=== PATIENT | male | born 1960 | race Caucasian/White ===

== ENCOUNTER 2025-01-15 09:13 | Emergency (ER) | payer MEDICARE, OTHER ==
[~2025-01-15] VITALS: Ht 177.8 cm; Wt 75.8 kg
--- NOTE | 2025-01-15 09:25 | Physician Documentation ---
History of Present Illness ~ Chief Complaint: Urinary Retention Stated Complaint: CANT VOID Time Seen by MD: 09:25 HPI This 64 yr old male presents to ER due to inability to urinate for over 12 hrs. Notes recent PCP visit with normal PSA. Denies chills, fever, or recent issues with retention or dysuria. Hx of urinary retention years ago at which point he had a cervical "spinal mass". 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 Sees [facility] neuro and has appt in a week for f/u. Denies other concerns. Admits to drinking "lots of Coors Lite" yesterday but denies anything else different over the last couple days. Does report that he frequently mountain bikes and did take a long ride yesterday. No reported injury. 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 Physical Exam Vital Signs: Temperature: 97.7, Source: Temporal, Heart Rate: 80, Respiratory Rate: 15, BP: 140/74, Pulse Oximetry: 98, Weight: 75.800 Physical Exam General: Alert, appears uncomfortable with preference to stand/walk rather than lie down. Neck: Full range of motion. Respiratory: Lungs clear, no respiratory distress. Chest: No accessory muscle use. Cardiovascular: Regular rate and rhythm, no murmurs. Gastrointestinal: Soft, nontender, nondistended. Bowels sounds present. Extremities: Normal range of motion, no deformity. Neurologic: Oriented x4. Psychiatric: Normal mood and affect. Skin: Normal color, warm and dry. No edema, no ecchymosis. Progress Progress Note RN reports over 800 PVR with bladder scan. Fuentes placed. Discussed case with RAVINDER Pak who recommends CT with/without contrast of lumbar spine and consideration for MRI as well. 1109: Case again discussed with RAVINDER Pak who recommends MRI w and without contrast of cervical, thoracic, and lumbar spine. Results/Orders Reviewed/noted all lab results: Yes Results/Orders Vital Signs 01/15/25 01/15/25 01/15/25 01/15/25 09:20 10:46 10:51 11:30 Temp 97.7 Pulse 80 70 68 Resp 15 16 18 14 B/P (MAP) 140/74 98/55 (69) 111/64 (80) Pulse Ox 98 95 97 O2 Flow Rate 0 0 01/15/25 01/15/25 01/15/25 01/15/25 12:30 13:25 14:30 15:30 Temp 97.9 Pulse 69 65 64 64 Resp 16 10 16 16 B/P (MAP) 109/64 (79) 112/62 (79) 111/64 (80) 114/64 (81) Pulse Ox 93 95 95 95 O2 Flow Rate 0 0 01/15/25 01/15/25 01/16/25 01/16/25 16:30 20:56 01:22 03:56 Temp 98.0 98.0 98.0 Pulse 70 63 58 55 Resp 16 12 12 12 B/P (MAP) 108/66 (80) 126/74 (91) 101/54 (70) 103/60 (74) Pulse Ox 96 95 95 97 O2 Flow Rate 0 0 0 0 01/16/25 05:50 Temp 98.0 Pulse 53 Resp 12 B/P (MAP) 116/58 (77) Pulse Ox 94 O2 Flow Rate 0 Laboratory Tests Test 01/15/25 10:05 01/15/25 10:39 White Blood Count 7.7 Red Blood Count 5.31 Hemoglobin 14.0 Hematocrit 42.5 Mean Corpuscular Volume 80.1 Mean Corpuscular Hemoglobin 26.4 L Mean Corpuscular Hemoglobin Concent 32.9 L Red Cell Distribution Width 15.0 H Platelet Count 202 Mean Platelet Volume 8.0 Neutrophils (%) (Auto) 75.8 H Lymphocytes (%) (Auto) 16.4 L Monocytes (%) (Auto) 7.0 Eosinophils (%) (Auto) 0.1 Basophils (%) (Auto) 0.7 Neutrophils # (Auto) 5.8 Lymphocytes # (Auto) 1.3 Monocytes # (Auto) 0.5 Eosinophils # (Auto) 0.0 Basophils # (Auto) 0.1 CBC Comment Sodium Level 135 Potassium Level 4.0 Chloride Level 102 Carbon Dioxide Level 21.1 L Anion Gap 12 Blood Urea Nitrogen 21 H Creatinine 1.13 H Estimated GFR/1.73 m2 65 BUN/Creatinine Ratio 18.6 Glucose Level 96 Calcium Level 8.8 Total Bilirubin 0.6 Aspartate Amino Transf (AST/SGOT) 21 Alanine Aminotransferase (ALT/SGPT) 29 Alkaline Phosphatase 76 Total Protein 7.1 Albumin 3.8 Globulin 3.3 Albumin/Globulin Ratio 1.2 Chemistry Comments Urine Specimen Description Fuentes cath Urine Color Yellow Urine Clarity Clear Urine pH 5.5 Urine Specific [place] 1.010 Urine Protein Negative Urine Glucose (UA) Negative Urine Ketones Negative Urine Occult Blood Moderate H Urine Nitrite Negative Urine Bilirubin Negative Urine Urobilinogen 0.2 Urine Leukocyte Esterase Negative Urine RBC 3-10 Urine WBC 0-4 Urine Squamous Epithelial Cells Few Urine Bacteria Few Urine Mucus None seen Urine Culture Indicated Not ind Volume Urine Centrifuged 4 ml Urine Comment Low volume EKG/XRAY/CT/US/VASC/MRI CT : Impression [place] [id number] CAT SCAN Patient: HOMAR SELLERS Medical Record: [id number] [facility] : 1960, Age: 64 Sex: Male Location: ER Patient Status: REG ER Service Date/Time: 01/15/25955 Ordering Physician: LINDA PALUMBO NP Exam: CT LUMBAR SPINE EXAM: CT CT LUMBAR SPINE INDICATION: urinary retention please do with and without contrast COMPARISON: None TECHNIQUE: Multiple axial CT images of the lumbar spine were obtained using bone algorithm. Axial and coronal reformatting was done. Bone and soft tissue windows were reviewed. Radiation Dose Information: CT Dose: CTDI volume is 18 mGy. Dose-length product is 621 mGy*cm FINDINGS: Lumbar vertebrae are normal in height and alignment. No disc space narrowing On transaxial images at L3-4 there is slight to moderate narrowing of the central canal and neural foramina by diffusely bulging disc ligamentum flavum hypertrophy and facet joint hypertrophy At L4-5 2 mm anterolisthesis due to degenerative facet joint disease. Moderate narrowing of the central canal and neural foramina by combination of bulging disc ligamentum flavum hypertrophy and facet joint hypertrophy At L5-S1 degenerative facet joint disease IMPRESSION: 1. At L3-4 moderate narrowing of the central canal and neural foramina by bulging disc ligamentum flavum hypertrophy and facet joint hypertrophy 2. At L4-5 2 mm anterolisthesis due to degenerative facet joint disease. Moderate narrowing of the central canal and neural foramina by a combination of bulging disc ligamentum flavum hypertrophy and facet joint hypertrophy. There may be nerve root effacement at this level. 3. Radiation optimization: All CT scans at this facility use at least one of these dose optimization techniques: automated exposure control mA and/or kV adjustment per patient size (includes targeted exams where dose is matched to clinical indication) or iterative reconstruction. Electronically Signed by:KAIN WYNN MD Date & Time: 01/15/251028 Dictated by: KAIN WYNN MD Dictation date and time: 01/15/25 102 Primary Care Provider: NO PRIMARY CARE PROVIDER cc: LINDA PALUMBO OPHTHALMIC TECH ~ MRI : Impression [place] [id number] MRI Patient: HOMAR SELLERS Medical Record: [id number] : 1960, Age: 64 Sex: Male Location: ER Patient Status: REG ER Service Date/Time: 01/15/251929 Ordering Physician: LINDA PALUMBO NP Exam: MRI C SPINE PROCEDURE: MRI cervical spine without and with contrast. INDICATION: hx sarcoid masses COMPARISON: None TECHNIQUE: MRI of the cervical spine without and with 15 mL Clariscan intravenous contrast utilizing multiplanar, multisequence technique. FINDINGS: The alignment of the cervical spine vertebral bodies is preserved. The vertebral body heights are maintained. There is intervertebral disc space narrowing at C3- C4, C4-C5 and C5-C6. The bone marrow signal is homogenous and unremarkable. The cervical spinal cord is normal in signal characteristics and caliber. Posterior fossa structures are unremarkable. No cerebellar tonsillar herniation. Paraspinal muscles are unremarkable. At the C2-C3 level, there is no evidence of central spinal canal or neuroforaminal stenosis. At the C3-C4 level, there is posterior disc osteophyte complex. No significant spinal stenosis. Moderate bilateral neural foraminal stenosis. At the C4-C5 level, there is posterior disc osteophyte complex without significant canal stenosis. Severe right and moderate to severe left neural foraminal stenosis. At the C5-C6 level, there is posterior disc osteophyte complex without significant canal stenosis. Severe right and mild left neural foraminal stenosis. At the C6-C7 level, there is posterior disc osteophyte complex which is asymmetric to the left. No significant spinal stenosis. Severe left neural foraminal stenosis. Right neural foramina is patent. At the C7-T1 level, there is no evidence of central spinal canal or neuroforaminal stenosis. Other: None. No leptomeningeal or dural enhancement. No mass. IMPRESSION: 1. No evidence of pathologic enhancement or mass to suggest neurosarcoid. 2. Multilevel cervical spondylosis as described. Electronically Signed by:ANTELMO DIETRICH MD Date & Time: 01/16/25627 Dictated by: ANTELOM DIETRICH MD Dictation date and time: 01/16/25627 Primary Care Provider: NO PRIMARY CARE PROVIDER cc: LINDA PALUMBO OPHTHALMIC TECH ~ [address] [address] MRI Patient: HOMAR SELLERS Medical Record: [id number] [facility] : 1960, Age: 64 Sex: Male Location: ER Patient Status: REG ER Service Date/Time: 01/15/251929 Ordering Physician: LINDA PALUMBO NP Exam: MRI THORACIC SPINE PROCEDURE: MRI thoracic spine without contrast. INDICATION: hx urinary retention, masses on cervical spine COMPARISON: None TECHNIQUE: MRI thoracic spine without intravenous contrast utilizing multiplanar, multisequence technique. FINDINGS: Study degraded by motion but images are still of diagnostic value. The marrow signal is homogenous. The vertebral body heights are maintained. Alignment of the thoracic spine is preserved. Broad-based posterior disc bulge at T3-T4 contacting but not deforming the thoracic spinal cord. The intervertebral disc spaces and signal characteristics are maintained. No significant canal or neural foraminal stenosis in the thoracic spine. The thoracic spinal cord is normal in caliber and signal characteristics. Other: None. Impression: 1. Broad-based posterior disc bulge at T3-T4 which contacts but does not deform the ventral surface of the cervical spinal cord. 2. No significant spinal or neural foraminal stenosis in the thoracic spine. Electronically Signed by:ANTELMO DIETRICH MD Date & Time: 01/16/25613 Dictated by: ANTELMO DIETRICH MD Dictation date and time: 01/16/25613 Primary Care Provider: NO PRIMARY CARE PROVIDER cc: LINDA PALUMBO OPHTHALMIC TECH ~ [address] [address] MRI Patient: HOMAR SELLERS Medical Record: [id number] [facility] : 1960, Age: 64 Sex: Male Location: ER Patient Status: REG ER Service Date/Time: 01/15/251929 Ordering Physician: LINDA PALUMBO NP Exam: MRI LUMBAR SPINE Addendum: 1 ADDENDUM # 1 Correction to the procedure and technique: Procedure: MRI lumbar spine without and with intravenous contrast. Technique: MRI lumbar spine without and with intravenous contrast utilizing multiplanar, multi sequence technique. ORIGINAL REPORT PROCEDURE: MRI lumbar spine without contrast. INDICATION: with and without for urinary retention, hx mass COMPARISON: CT CT LUMBAR SPINE on DOS: 01/15/25 TECHNIQUE: MRI lumbar spine without intravenous contrast utilizing multiplanar, multisequence technique. FINDINGS: Evaluation is limited by motion artifact. There is grade 1 anterolisthesis at L4-L5. The lumbar curvature is maintained. Bone marrow signal is homogenous and unremarkable. The vertebral body heights are maintained. There is intervertebral disc space narrowing and diminished T2 signal intensity at L4-L5. Intervertebral disc heights are otherwise maintained. There is a Schmorl's node in the superior and inferior L1 L plate.. The conus medullaris is normal in signal characteristics and terminates at the T12-L1 level. Paraspinal muscles are unremarkable. At the T12-L1 level, there is no evidence of central spinal canal or neuroforaminal stenosis. Small posterior central annular fissure. At the L1-L2 level, there is small posterior central annular fissure. No evidence of significant spinal or neural foraminal stenosis. At the L2-L3 level, there is no evidence of central spinal canal stenosis. Mild bilateral neural foraminal stenosis. At the L3-L4 level, there is broad-based posterior disc bulge, ligamentum flavum thickening and facet hypertrophy. There is a small posterior central disc protrusion. There is moderate to severe right neural foraminal stenosis with impingement of the exiting right L3 nerve root. There is moderate to severe left neural foraminal stenosis without nerve root impingement. At the L4-L5 level, there is grade 1 anterolisthesis, broad-based posterior disc bulge, ligamentum flavum and facet hypertrophy. There is a 4 mm low signal intensity focus either arising from the right facet joints representing ossification, or calcification of the ligamentum flavum which contacts and impinges the exiting right L4 nerve root in the neural foramen. There is severe right neural foraminal stenosis. There is mild left neural foraminal stenosis. At the L5-S1 level, there is broad-based posterior disc bulge, ligamentum flavum thickening and facet hypertrophy. There is mild bilateral neural foraminal sten osis. Other: None. Postcontrast images: No pathologic enhancement or mass. IMPRESSION: 1. Multilevel lumbar spondylosis. This includes moderate to severe right neural foraminal stenosis at L3-L4 secondary to either osteophyte arising from the right facet joint or calcification of the hypertrophied ligamentum flavum which causes impingement of the exiting right L3 nerve root. There is also severe right neural foraminal stenosis and impingement of the exiting right L4 nerve root as described. 2. No pathologic enhancement in the lumbar spine. No mass. Dictated: ANTELMO DIETRICH MD Dictated Date: 01/16/25 Ditated Time: 06 Electronically signed by: ANTELMO DIETRICH MD 01/16/25 0608 PROCEDURE: MRI lumbar spine without contrast. INDICATION: with and without for urinary retention, hx mass COMPARISON: CT CT LUMBAR SPINE on DOS: 01/15/25 TECHNIQUE: MRI lumbar spine without intravenous contrast utilizing multiplanar, multisequence technique. FINDINGS: Evaluation is limited by motion artifact. There is grade 1 anterolisthesis at L4-L5. The lumbar curvature is maintained. Bone marrow signal is homogenous and unremarkable. The vertebral body heights are maintained. There is intervertebral disc space narrowing and diminished T2 signal intensity at L4-L5. Intervertebral disc heights are otherwise maintained. There is a Schmorl's node in the superior and inferior L1 L plate.. The conus medullaris is normal in signal characteristics and terminates at the T12-L1 level. Paraspinal muscles are unremarkable. At the T12-L1 level, there is no evidence of central spinal canal or neuroforaminal stenosis. Small posterior central annular fissure. At the L1-L2 level, there is small posterior central annular fissure. No evidence of significant spinal or neural foraminal stenosis. At the L2-L3 level, there is no evidence of central spinal canal stenosis. Mild bilateral neural foraminal stenosis. At the L3-L4 level, there is broad-based posterior disc bulge, ligamentum flavum thickening and facet hypertrophy. There is a small posterior central disc protrusion. There is moderate to severe right neural foraminal stenosis with impingement of the exiting right L3 nerve root. There is moderate to severe left neural foraminal stenosis without nerve root impingement. At the L4-L5 level, there is grade 1 anterolisthesis, broad-based posterior disc bulge, ligamentum flavum and facet hypertrophy. There is a 4 mm low signal in tensity focus either arising from the right facet joints representing ossification, or calcification of the ligamentum flavum which contacts and impinges the exiting right L4 nerve root in the neural foramen. There is severe right neural foraminal stenosis. There is mild left neural foraminal stenosis. At the L5-S1 level, there is broad-based posterior disc bulge, ligamentum flavum thickening and facet hypertrophy. There is mild bilateral neural foraminal stenosis. Other: None. Postcontrast images: No pathologic enhancement or mass. IMPRESSION: 1. Multilevel lumbar spondylosis. This includes moderate to severe right neural foraminal stenosis at L3-L4 secondary to either osteophyte arising from the right facet joint or calcification of the hypertrophied ligamentum flavum which causes impingement of the exiting right L3 nerve root. There is also severe right neural foraminal stenosis and impingement of the exiting right L4 nerve root as described. 2. No pathologic enhancement in the lumbar spine. No mass. Electronically Signed by:ANTELMO DIETRICH MD Date & Time: 01/16/25555 Dictated by: ANTELMO DIETRICH MD Dictation date and time: 01/16/25555 Primary Care Provider: NO PRIMARY CARE PROVIDER cc: LINDA PALUMBO OPHTHALMIC TECH ~ Departure Disposition: 01 HOME / SELF CARE / HOMELESS Impression: Primary Impression: Urinary retention Condition: Improved Additional Instructions: There is no explanation for your acute urinary retention. A Fuentes catheter was placed. There is no evidence of urinary tract infection. Please follow-up with urology. Your MRI did not show any evidence of severe cord impingement, there are some chronic narrowings that likely result in chronic back pain. Follow-up with the spine or neurosurgeon of your choice. Referrals: NO PRIMARY CARE PROVIDER (PCP) Education Educated: Patient, Family Educated regarding: diagnosis, treatment, prognosis, need for follow up Additional Comment Additional Comment Patient was signed out to me to evaluate urinary retention and pitting on MRI to transfer to neurosurgical center for neurogenic bladder or discharge home if it was thought to be secondary to BPH. There was a delay in results of the MRI. Patient will be signed out to the morning physician for final disposition. Additional Comment Additional Comment Additional note by Tuan Pak DO: I took over the care of this patient from previous physician. I reviewed any previous notes available, obtain my own history, review of systems and physical examination was performed by myself. This is a 64-year-old gentleman who presented for evaluation of acute urinary retention. Had over 800 cc of postvoid residual. 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 He had undergone MRI. There was a severe delay in the MRI reads. MRI read showed no acute disease no severe cord impingement. He remains neurologically intact. Fuentes catheter is in place and draining. He is stable for discharge with outpatient follow-up with his neurosurgeon and neurologist. Patient is hemodynamically stable for discharge home with follow with their primary care provider. [ ] Specific and cautious return precautions provided and discussed with full understanding. Any incidental findings were also discussed and follow up recommendations given. [] All questions answered. Patient/family were able to verbalize back return precautions. Patient/family agree to plan. Copies of imaging and laboratory studies were provided. Signature Scribe Signature: no scribe Attestation: The note accurately reflects work and decisions made by me.Linda Larsen NP 01/15/25 09:35 This note accurately reflects clinical decisions, work performed by myself, Tuan Pak DO @ 0821 on 01/16/2025 LINDA PALUMBO NP Jan 15, 2025 09:25 BRIDGETTE KWON MD Jan 15, 2025 19:56 TUAN PAK DO Jan 16, 2025 08:14
[2025-01-15] MEDS: LidoCAINE 2% Topical Jelly 11mL syringe (UROJET) TOP ONE (09:54)
[2025-01-15] MEDS: LORazepam 1 MG tablet PO ONE (10:04)
[2025-01-15 10:10] LABS: BASOPHILS # (AUTO) 0.1 X10'3 (0-0.2); BASOPHILS % (AUTO) 0.7 % (0-1); EOSINOPHILS % (AUTO) 0.1 % (0-6); HEMATOCRIT 42.5 % (42.0-52.0); LYMPHOCYTES # (AUTO) 1.3 X10'3 (1.1-4.8); LYMPHOCYTES % (AUTO) 16.4 % (21-51); MEAN CORPUSCULAR HEMOGLOBIN 26.4 PG (27.0-31.0); MEAN CORPUSCULAR HGB CONC 32.9 g/dL (33.0-36.5); MEAN CORPUSCULAR VOLUME 80.1 FL (78-98); MONOCYTES # (AUTO) 0.5 X10'3 (0-0.9); NEUTROPHILS # (AUTO) 5.8 X10'3 (1.8-7.7); NEUTROPHILS % (AUTO) 75.8 % (42-75); PLATELET COUNT 202 X10'3 (140-440); RED BLOOD COUNT 5.31 X10'6 (4.70-6.10); WHITE BLOOD COUNT 7.7 X10'3 (4.5-11.0)
[2025-01-15 10:26] LABS: ALANINE AMINOTRANSFERASE 29 U/L (12-78); ALBUMIN 3.8 G/DL (3.4-5.0); ALBUMIN/GLOBULIN RATIO 1.2 (1.1-1.5); ALKALINE PHOSPHATASE 76 IU/L (46-116); ANION GAP 12 (8-16); ASPARTATE AMINO TRANSFERASE 21 U/L (10-37); BILIRUBIN,TOTAL 0.6 MG/DL (0.1-1.0); BLOOD UREA NITROGEN 21 MG/DL (7-18); BUN/CREATININE RATIO 18.6 (10.0-20.0); CALCIUM 8.8 MG/DL (8.5-10.1); CHLORIDE 102 MMOL/L (99-107); CREATININE 1.13 MG/DL (0.60-1.10); GLUCOSE 96 MG/DL (70-104); SODIUM 135 MMOL/L (135-145); TOTAL CARBON DIOXIDE 21.1 MMOL/L (24-32); TOTAL PROTEIN 7.1 G/DL (6.4-8.2); eCRCL 67 ML/MIN; eGFR 65 ML/MIN
--- NOTE | 2025-01-15 10:31 | RADIOLOGY REPORT ---
EXAM: CT CT LUMBAR SPINE INDICATION: urinary retention please do with and without contrast COMPARISON: None TECHNIQUE: Multiple axial CT images of the lumbar spine were obtained using bone algorithm. Axial an d coronal reformatting was done. Bone and soft tissue windows were reviewed. Radiation Dose Information: CT Dose: CTDI volume is 18 mGy. Dose-length product is 621 mGy*cm FINDINGS: Lumbar vertebrae are normal in height and alignment. No disc space narrowing On transaxial images at L3-4 there is slight to moderate narrowing of the central canal and neural fo ramina by diffusely bulging disc ligamentum flavum hypertrophy and facet joint hypertrophy At L4-5 2 mm anterolisthesis due to degenerative facet joint disease. Moderate narrowing of the cent ral canal and neural foramina by combination of bulging disc ligamentum flavum hypertrophy and facet joint hypertrophy At L5-S1 degenerative facet joint disease IMPRESSION: 1. At L3-4 moderate narrowing of the central canal and neural foramina by bulging disc ligamentum fla vum hypertrophy and facet joint hypertrophy 2. At L4-5 2 mm anterolisthesis due to degenerative facet joint disease. Moderate narrowing of the c entral canal and neural foramina by a combination of bulging disc ligamentum flavum hypertrophy and f acet joint hypertrophy. There may be nerve root effacement at this level. 3. Radiation optimization: All CT scans at this facility use at least one of these dose optimization techniques: automated exposure control mA and/or kV adjustment per patient size (includes targeted e xams where dose is matched to clinical indication) or iterative reconstruction.
[2025-01-15 11:00] LABS: BILIRUBIN,URINE NEGATIVE (Neg); CLARITY,URINE CLEAR (Clear); COLOR,URINE YELLOW (Yellow); GLUCOSE, URINE NEGATIVE (Neg); KETONES,URINE NEGATIVE (Neg); LEUKOCYTE ESTERASE ,URINE NEGATIVE (Neg); NITRITES, URINE NEGATIVE (Neg); OCCULT BLOOD,URINE MODERATE (Neg); PH,URINE 5.5 (4.8-8.0); PROTEIN,URINE NEGATIVE (Neg); UROBILINOGEN,URINE 0.2 E.U/dL (0.2-1.0)
[2025-01-15 11:03] LABS: UA COLLECTION TYPE FOLEY CATH
[2025-01-15 11:11] LABS: WBC,URINE 0-4 /HPF (0-4)
[2025-01-15 11:12] LABS: BACTERIA,URINE FEW /HPF (Neg); MUCUS STRANDS NONE SEEN /LPF (Neg); SQUAMOUS EPITHELIAL CELL,UR FEW /LPF (FEW)
[2025-01-15] MEDS: LORazepam 2 mg/ml vial IV ONE (18:14)
[2025-01-15] MEDS: GADOTERATE MEGLUMINE 7.5 MMOL/15 ML VIAL IV ONE (20:09)
[2025-01-15] MEDS ORDERED: VENL25TA48 PO (21:29)
[2025-01-15] MEDS ORDERED: ACET-3414 (21:29)
[2025-01-15] MEDS ORDERED: LYR25C PO (21:29)
[2025-01-15] MEDS ORDERED: DOXY-1 PO (21:29)
--- NOTE | 2025-01-16 05:59 | RADIOLOGY REPORT ---
PROCEDURE: MRI lumbar spine without contrast. INDICATION: with and without for urinary retention, hx mass COMPARISON: CT CT LUMBAR SPINE on DOS: 01/15/25 TECHNIQUE: MRI lumbar spine without intravenous contrast utilizing multiplanar, multisequence techni que. FINDINGS: Evaluation is limited by motion artifact. There is grade 1 anterolisthesis at L4-L5. The lumbar curvature is maintained. Bone marrow signal is homogenous and unremarkable. The vertebral body heights are maintained. There is intervertebral disc space narrowing and diminished T2 signal intensity at L4-L5. Intervertebral disc heights are otherw ise maintained. There is a Schmorl's node in the superior and inferior L1 L plate.. The conus medulla ris is normal in signal characteristics and terminates at the T12-L1 level. Paraspinal muscles are un remarkable. At the T12-L1 level, there is no evidence of central spinal canal or neuroforaminal stenosis. Small p osterior central annular fissure. At the L1-L2 level, there is small posterior central annular fissure. No evidence of significant spi nal or neural foraminal stenosis. At the L2-L3 level, there is no evidence of central spinal canal stenosis. Mild bilateral neural for aminal stenosis. At the L3-L4 level, there is broad-based posterior disc bulge, ligamentum flavum thickening and facet hypertrophy. There is a small posterior central disc protrusion. There is moderate to severe right n eural foraminal stenosis with impingement of the exiting right L3 nerve root. There is moderate to se kendy left neural foraminal stenosis without nerve root impingement. At the L4-L5 level, there is grade 1 anterolisthesis, broad-based posterior disc bulge, ligamentum fl avum and facet hypertrophy. There is a 4 mm low signal intensity focus either arising from the right facet joints representing ossification, or calcification of the ligamentum flavum which contacts and impinges the exiting right L4 nerve root in the neural foramen. There is severe right neural foramin al stenosis. There is mild left neural foraminal stenosis. At the L5-S1 level, there is broad-based posterior disc bulge, ligamentum flavum thickening and facet hypertrophy. There is mild bilateral neural foraminal stenosis. Other: None. Postcontrast images: No pathologic enhancement or mass. IMPRESSION: 1. Multilevel lumbar spondylosis. This includes moderate to severe right neural foraminal stenosis a t L3-L4 secondary to either osteophyte arising from the right facet joint or calcification of the hyp ertrophied ligamentum flavum which causes impingement of the exiting right L3 nerve root. There is al so severe right neural foraminal stenosis and impingement of the exiting right L4 nerve root as descr ibed. 2. No pathologic enhancement in the lumbar spine. No mass.
--- NOTE | 2025-01-16 06:16 | RADIOLOGY REPORT ---
PROCEDURE: MRI thoracic spine without contrast. INDICATION: hx urinary retention, masses on cervical spine COMPARISON: None TECHNIQUE: MRI thoracic spine without intravenous contrast utilizing multiplanar, multisequence tech nique. FINDINGS: Study degraded by motion but images are still of diagnostic value. The marrow signal is homogenous. The vertebral body heights are maintained. Alignment of the thoracic spine is preserved. Broad-based posterior disc bulge at T3-T4 contacting but not deforming the thora cic spinal cord. The intervertebral disc spaces and signal characteristics are maintained. No signif icant canal or neural foraminal stenosis in the thoracic spine. The thoracic spinal cord is normal i n caliber and signal characteristics. Other: None. Impression: 1. Broad-based posterior disc bulge at T3-T4 which contacts but does not deform the ventral surface o f the cervical spinal cord. 2. No significant spinal or neural foraminal stenosis in the thoracic spine.
--- NOTE | 2025-01-16 06:30 | RADIOLOGY REPORT ---
PROCEDURE: MRI cervical spine without and with contrast. INDICATION: hx sarcoid masses COMPARISON: None TECHNIQUE: MRI of the cervical spine without and with 15 mL Clariscan intravenous contrast utilizing multiplanar, multisequence technique. FINDINGS: The alignment of the cervical spine vertebral bodies is preserved. The vertebral body heights are annette ntained. There is intervertebral disc space narrowing at C3-C4, C4-C5 and C5-C6. The bone marrow sign al is homogenous and unremarkable. The cervical spinal cord is normal in signal characteristics and c aliber. Posterior fossa structures are unremarkable. No cerebellar tonsillar herniation. Paraspinal m uscles are unremarkable. At the C2-C3 level, there is no evidence of central spinal canal or neuroforaminal stenosis. At the C3-C4 level, there is posterior disc osteophyte complex. No significant spinal stenosis. Mode rate bilateral neural foraminal stenosis. At the C4-C5 level, there is posterior disc osteophyte complex without significant canal stenosis. S evere right and moderate to severe left neural foraminal stenosis. At the C5-C6 level, there is posterior disc osteophyte complex without significant canal stenosis. Se kendy right and mild left neural foraminal stenosis. At the C6-C7 level, there is posterior disc osteophyte complex which is asymmetric to the left. No s ignificant spinal stenosis. Severe left neural foraminal stenosis. Right neural foramina is patent. At the C7-T1 level, there is no evidence of central spinal canal or neuroforaminal stenosis. Other: None. No leptomeningeal or dural enhancement. No mass. IMPRESSION: 1. No evidence of pathologic enhancement or mass to suggest neurosarcoid. 2. Multilevel cervical spondylosis as described.
[2025-01-16] MEDS ORDERED: TAMS-55 PO (08:26)
[2025-01-16 08:40] VITALS: BP 101/47; PULSE 75; RESP 18; TEMP 98; O2SAT 99
== END 2025-01-16 08:41 | disposition home or self-care (01) ==
LOC: ER 09:14
DX: R33.9 Retention of urine, unspecified (principal); Z79.899 Other long term (current) drug therapy
CPT/HCPCS: 36415; 51702; 51798; 72131; 72156; 72157; 72158; 80053; 81001; 85025; 96374; 99285; A4314; A4358; J2060